=== PATIENT | male | born 1985 | race Hispanic/Latino ===

== ENCOUNTER 2018-10-31 11:27 | Emergency (ER) | payer OTHER ==
[2018-10-31] MEDS ORDERED: Morphine 4 MG/ML VIAL ONE (14:00)
[2018-10-31] MEDS ORDERED: cefTRIAXone\\ROCEPHIN 1 GM VIAL ONE (14:00)
[2018-10-31] MEDS ORDERED: Lidocaine 1% PF 5 ML VIAL ONE (14:02)
[2018-10-31] MEDS ORDERED: CEFAZOLIN 1 GM VIAL ONE (14:20)
[2018-10-31] MEDS ORDERED: Sterile Water 10 ML ONE (14:25)
--- NOTE | 2018-10-31 14:39 | RAD ---
RIGHT FINGER 3 VIEWS: Date: 10/31/18 HISTORY: Injury. COMPARISON: None. FINDINGS: There is a transversely oriented open fracture tuft distal phalanx of thumb with distraction. The ove rlying nail bed is injured. IMPRESSION: Open, displaced, distracted, transversely oriented fracture tuft distal phalanx of thumb. POS: CET
== END 2018-10-31 16:22 | disposition home or self-care (01) ==
LOC: ERS 11:27
DX: S68.021A Partial traumatic metacarpophalangeal amputation of right thumb, initial encounter (principal); S62.521B Displaced fracture of distal phalanx of right thumb, initial encounter for open fracture; F17.210 Nicotine dependence, cigarettes, uncomplicated; W31.89XA Contact with other specified machinery, initial encounter
CPT/HCPCS: 12001; 26725; 96372; J0690; J0696; J2001; J2270